=== PATIENT | female | born 1975 | race Caucasian/White ===

== ENCOUNTER 2023-10-09 07:32 | Inpatient (IN) | payer OTHER, MEDICARE ==
[2023-10-10] MEDS ORDERED: DARBEPOETIN ALFA 200 MCG/0.4 ML INJECT SCH (14:15)
[2023-10-10] MEDS: Mirtazapine 15 MG Tab PO SCH (21:50)
[2023-10-10] MEDS: Multivitamins with Iron/Calcium/Folic Acid/Minerals Tab PO SCH (21:50)
[2023-10-10] MEDS: levETIRAcetam 500 MG Tab PO SCH (21:50)
[2023-10-10] MEDS: Midodrine 5 MG Tab PO SCH (21:50)
[2023-10-10] MEDS: MYCOPHENOLATE SOD 180 MG PO SCH (21:50)
[2023-10-10] MEDS: Tacrolimus 0.5 MG Cap PO SCH (21:51)
[2023-10-11] MEDS: Pantoprazole 40 MG Tab.CR PO SCH (06:40)
[2023-10-11] MEDS: Ferrous Sulfate 325 MG Tab PO SCH (09:23)
[2023-10-11] MEDS: Aspirin 81 MG Tab.EC PO SCH (09:23)
[2023-10-11] MEDS: Cyanocobalamin/Folic Acid/Pyridoxine Tab PO SCH (09:23)
[2023-10-11] MEDS: levETIRAcetam 500 MG Tab PO SCH ×2 (09:23→20:43)
[2023-10-11] MEDS: Midodrine 5 MG Tab PO SCH ×2 (09:24→20:41)
[2023-10-11] MEDS: MYCOPHENOLATE SOD 180 MG PO SCH ×2 (09:24→20:43)
[2023-10-11] MEDS: Tacrolimus 0.5 MG Cap PO SCH ×2 (09:24→20:44)
[2023-10-11] MEDS: lamoTRIgine 25 MG Tab PO SCH (09:24)
[2023-10-11] MEDS: Multivitamins with Iron/Calcium/Folic Acid/Minerals Tab PO SCH ×2 (09:25→20:43)
[2023-10-11] MEDS: Mirtazapine 15 MG Tab PO SCH (20:42)
[2023-10-12 06:36] LABS: BLOOD UREA NITROGEN,BUN 39 mg/dL (7-18); BUN/CREATININE RATIO 21.7 (9-20); CALCIUM 8.9 mg/dL (8.6-10.2); CARBON DIOXIDE,CO2 31 mmol/L (21-32); CHLORIDE,CL 109 mmol/L (100-110); CREATININE 1.8 mg/dL (0.55-1.02); EST CRCL DRUG DOSING (CG) 25.77 mL/min; ESTIMATED GFR 34 mL/min (>60); GLUCOSE RANDOM 87 mg/dL (80-116); POTASSIUM,K 5.2 mmol/L (3.5-5.3); SODIUM,NA 141 mmol/L (135-145)
[2023-10-12] MEDS: Pantoprazole 40 MG Tab.CR PO SCH (06:43)
[2023-10-12] MEDS: Multivitamins with Iron/Calcium/Folic Acid/Minerals Tab PO SCH ×2 (08:35→20:43)
[2023-10-12] MEDS: Ferrous Sulfate 325 MG Tab PO SCH (08:35)
[2023-10-12] MEDS: Cyanocobalamin/Folic Acid/Pyridoxine Tab PO SCH (08:35)
[2023-10-12] MEDS: Midodrine 5 MG Tab PO SCH ×2 (08:36→17:20)
[2023-10-12] MEDS: levETIRAcetam 500 MG Tab PO SCH ×2 (08:36→20:42)
[2023-10-12] MEDS: MYCOPHENOLATE SOD 180 MG PO SCH ×2 (08:36→20:42)
[2023-10-12] MEDS: lamoTRIgine 25 MG Tab PO SCH (08:36)
[2023-10-12] MEDS: Tacrolimus 0.5 MG Cap PO SCH ×2 (08:36→20:42)
[2023-10-12] MEDS: Aspirin 81 MG Tab.EC PO SCH (08:36)
[2023-10-12] MEDS: Mirtazapine 15 MG Tab PO SCH (20:43)
[2023-10-13] MEDS: Pantoprazole 40 MG Tab.CR PO SCH (06:45)
[2023-10-13] MEDS: Ferrous Sulfate 325 MG Tab PO SCH (08:49)
[2023-10-13] MEDS: Midodrine 5 MG Tab PO SCH ×2 (08:49→17:59)
[2023-10-13] MEDS: Cyanocobalamin/Folic Acid/Pyridoxine Tab PO SCH (08:50)
[2023-10-13] MEDS: levETIRAcetam 500 MG Tab PO SCH ×2 (08:50→21:23)
[2023-10-13] MEDS: Multivitamins with Iron/Calcium/Folic Acid/Minerals Tab PO SCH ×2 (08:51→21:23)
[2023-10-13] MEDS: Tacrolimus 0.5 MG Cap PO SCH ×2 (08:51→21:23)
[2023-10-13] MEDS: Aspirin 81 MG Tab.EC PO SCH (08:52)
[2023-10-13] MEDS: lamoTRIgine 25 MG Tab PO SCH (08:53)
[2023-10-13] MEDS: MYCOPHENOLATE SOD 180 MG PO SCH ×2 (08:53→21:23)
[2023-10-13] MEDS: Mirtazapine 15 MG Tab PO SCH (21:23)
[2023-10-14] MEDS: Pantoprazole 40 MG Tab.CR PO SCH (07:52)
[2023-10-14] MEDS: Midodrine 5 MG Tab PO SCH ×2 (07:52→16:25)
[2023-10-14] MEDS: Tacrolimus 0.5 MG Cap PO SCH ×2 (08:00→21:33)
[2023-10-14] MEDS: MYCOPHENOLATE SOD 180 MG PO SCH ×2 (08:00→21:33)
[2023-10-14] MEDS: Aspirin 81 MG Tab.EC PO SCH (08:01)
[2023-10-14] MEDS: Ferrous Sulfate 325 MG Tab PO SCH (08:01)
[2023-10-14] MEDS: Cyanocobalamin/Folic Acid/Pyridoxine Tab PO SCH (08:01)
[2023-10-14] MEDS: lamoTRIgine 100 MG Tab PO SCH (08:02)
[2023-10-14] MEDS: levETIRAcetam 500 MG Tab PO SCH ×2 (08:02→21:33)
[2023-10-14] MEDS: Multivitamins with Iron/Calcium/Folic Acid/Minerals Tab PO SCH ×2 (08:03→21:35)
[2023-10-14] MEDS: Mirtazapine 15 MG Tab PO SCH (21:34)
[2023-10-15] MEDS: Pantoprazole 40 MG Tab.CR PO SCH (06:12)
[2023-10-15] MEDS: Midodrine 5 MG Tab PO SCH ×2 (08:55→16:34)
[2023-10-15] MEDS: Tacrolimus 0.5 MG Cap PO SCH ×2 (08:55→20:13)
[2023-10-15] MEDS: MYCOPHENOLATE SOD 180 MG PO SCH ×2 (08:55→20:13)
[2023-10-15] MEDS: Ferrous Sulfate 325 MG Tab PO SCH (08:56)
[2023-10-15] MEDS: Aspirin 81 MG Tab.EC PO SCH (08:56)
[2023-10-15] MEDS: levETIRAcetam 500 MG Tab PO SCH ×2 (08:56→20:12)
[2023-10-15] MEDS: Cyanocobalamin/Folic Acid/Pyridoxine Tab PO SCH (08:56)
[2023-10-15] MEDS: Multivitamins with Iron/Calcium/Folic Acid/Minerals Tab PO SCH ×2 (08:56→20:13)
[2023-10-15] MEDS: lamoTRIgine 100 MG Tab PO SCH (08:57)
[2023-10-15] MEDS: Mirtazapine 15 MG Tab PO SCH (20:13)
[2023-10-16] MEDS: Pantoprazole 40 MG Tab.CR PO SCH (05:20)
[2023-10-16] MEDS: Midodrine 5 MG Tab PO SCH (07:58)
[2023-10-16] MEDS: MYCOPHENOLATE SOD 180 MG PO SCH (09:19)
[2023-10-16] MEDS: Tacrolimus 0.5 MG Cap PO SCH (09:19)
[2023-10-16] MEDS: Cyanocobalamin/Folic Acid/Pyridoxine Tab PO SCH (09:19)
[2023-10-16] MEDS: levETIRAcetam 500 MG Tab PO SCH (09:20)
[2023-10-16] MEDS: Multivitamins with Iron/Calcium/Folic Acid/Minerals Tab PO SCH (09:20)
[2023-10-16] MEDS: Ferrous Sulfate 325 MG Tab PO SCH (09:20)
[2023-10-16] MEDS: Aspirin 81 MG Tab.EC PO SCH (09:20)
[2023-10-16] MEDS: lamoTRIgine 100 MG Tab PO SCH (09:26)
[2023-10-16 10:30] VITALS: BP 99/62; PULSE 101
[2023-10-27] MEDS ORDERED: lamoTRIgine 100 MG Tab PO SCH (09:00)
== END 2023-10-16 10:51 | disposition home or self-care (01) | DRG 948 ==
LOC: FB.MS 10-10 12:05
PROVIDERS: ADMIT Family Medicine; ATTEND Family Medicine
DX: R53.1 Weakness (principal); Z94.0 Kidney transplant status; D84.9 Immunodeficiency, unspecified; R62.7 Adult failure to thrive; F41.1 Generalized anxiety disorder; I95.1 Orthostatic hypotension; D64.9 Anemia, unspecified; G40.909 Epilepsy, unspecified, not intractable, without status epilepticus; F32.A Depression, unspecified; K21.9 Gastro-esophageal reflux disease without esophagitis; J45.909 Unspecified asthma, uncomplicated; M54.9 Dorsalgia, unspecified; R53.81 Other malaise; G25.79 Other drug induced movement disorders; E10.22 Type 1 diabetes mellitus with diabetic chronic kidney disease; D63.1 Anemia in chronic kidney disease; N18.31 Chronic kidney disease, stage 3a; Z79.82 Long term (current) use of aspirin; Z79.899 Other long term (current) drug therapy; Z88.8 Allergy status to other drugs, medicaments and biological substances; Z90.49 Acquired absence of other specified parts of digestive tract
CPT/HCPCS: 36415; 80048; 93005; 97110-GO; 97110-GP; 97161-GP; 97165-GO; 97530-GO; 97535-GO; A9270-GY; J7507